=== PATIENT | male | born 1950 | race Caucasian/White ===

== ENCOUNTER 2021-02-07 09:01 | Outpatient (CLI) | payer MEDICARE, OTHER, SELFPAY ==
--- NOTE | 2021-02-07 09:45 | XR_ITS ---
WS: [id number] KUB, AP view, 02/07/2021 Clinical Data: uroliathiasis Comparison: KUB, 02/07/2019. Findings: No abnormal intraabdominal masses are seen. There is no dilatated small bowel or evidence of obstruct ion. There are small calcifications overlying both kidneys. There is a dextroscoliosis with osteoarthritis of the lumbar spine. XR/XR KUB [id number] Impression: Small bilateral renal calculi.
== END 2021-02-07 09:02 | disposition home or self-care (01) ==
LOC: RAD 09:09
PROVIDERS: PCP Family Medicine; Visit Provider Urology
DX: N20.0 Calculus of kidney (principal); N40.1 Benign prostatic hyperplasia with lower urinary tract symptoms
CPT/HCPCS: 74018; 81003; G0103

== ENCOUNTER 2021-08-08 09:34 | Outpatient (CLI) | payer MEDICARE, OTHER, SELFPAY ==
--- NOTE | 2021-08-08 09:50 | XR_ITS ---
WS: [id number] KUB, AP view, 08/08/2021 Clinical Data: urolithiasis Comparison: KUB, 02/07/2021. Findings: No abnormal intraabdominal masses are seen. There is no dilatated small bowel or evidence of obstruct ion. There are bilateral calcifications overlying the kidneys unchanged. There is a dextroscoliosis lumbar spine with osteoarthritis. XR/XR KUB [id number] Impression: No change in bilateral renal calcifications.
== END 2021-08-08 09:35 | disposition home or self-care (01) ==
LOC: RAD 09:41
PROVIDERS: PCP Family Medicine; Visit Provider Urology
DX: N20.0 Calculus of kidney (principal); R31.0 Gross hematuria
CPT/HCPCS: 74018; 81003

== ENCOUNTER 2021-10-23 14:29 | Emergency (ER) | payer OTHER, SELFPAY ==
[2021-10-23 15:27] VITALS: BP 137/80; PULSE 57; RESP 16; TEMP 36.8; O2SAT 99
--- NOTE | 2021-10-23 15:59 | W.ED.GENADLT ---
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 Tetanus UTD. Onset (ago): minute(s) Associated symptoms: Reports no associated symptoms Treatments prior to arrival: other (irrigation of finger) Review of Systems General: Reports: Other (patient has no complaints at this time) REPLACED BY [facility] PFSH: Medical History BPH loc w urin obs/LUTS Gross hematuria Renal stones Surgical History History of cataract surgery bilateral S/P extracorporeal shock wave therapy Family History Mother , AT AGE 62 Myocardial infarct Father , FATHER AT AGE 84 Emphysema, unspecified Social History Smoking and tobacco status: never smoked Alcohol intake: never Marital status: Current occupational status: employed 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 History of recent travel: No Physical Exam Const: COMMON NORMALS: no acute distress, no limitations, alert and well nourished Extremity: COMMON NORMALS: normal to inspection GENERAL: Yes normal exam except as noted OTHER: no needle puncture kelton was able to be visualized to L index finger Neuro: COMMON NORMALS: moves all extremities, no focal motor deficits and no sensory deficits noted SENSORIUM/ORIENTATION: Yes alert Skin: NARRATIVE SKIN EXAM: no pertinent skin findings noted Course Vital Signs: Vital signs: Vital Signs Temperature 98.2 F 10/23/21 15:27 Pulse Rate 57 L 10/23/21 15:27 Respiratory Rate 16 10/23/21 15:27 Blood Pressure 137/80 10/23/21 15:27 Pulse Oximetry 99 10/23/21 15:27 [facility] - General Adult Medical Decision Making home restoration service supervisor will be contacted. Director at [employer] stated source patient was currently being drawn. Patient's tetanus is UTD. He declines PEP for HIV. Employee exposure labs will be drawn. Worker's Comp. packet completed. Patient will be given instructions on directions on where to go to receive drug and alcohol testing. Discharge Plan Discharge Patient Disposition: Home Clinical Impression: Needle stick injury of finger Condition: Stable Prescriptions: No Action metformin 500 mg tablet 500 mg PO DAILY 0RF ezetimibe-simvastatin [Vytorin 10-40] 10-40 mg tablet 1 tab PO DAILY 0RF sildenafil (pulm.hypertension) 20 mg tablet 20 mg PO .prn 0RF Rx Instructions: administer doses at least 4-6 hours apart prevegen PO DAILY 0RF omega-3 fatty acids [Fish Oil Concentrate] 1,000 mg capsule 1,000 mg PO DAILY 0RF cholecalciferol (vitamin D3) 10 mcg (400 unit) capsule 10 mcg PO DAILY 0RF aspirin 81 mg tablet,delayed release (DR/EC) 81 mg PO DAILY 0RF apple cider vinegar 500 mg tablet PO DAILY 0RF tamsulosin 0.4 mg capsule 0.4 mg PO .at bedtime Qty: 90 1RF finasteride 5 mg tablet 5 mg PO DAILY Qty: 90 1RF Discharge Orders: Discharge ED (Routine); Ordered 10/23/21 Ordered By: Courtney Rao Referrals: Irvin Todd MD [Primary Care Provider] - Patient Instructions: Blood/Body Fluid Exposure - Occupational, Needle Stick Injuries (ED) Coding Level of Care Code ED Miller Supervisor for Maninder Lu
[2021-10-23 16:52] VITALS: BP 129/73; PULSE 61; RESP 16; TEMP 36.8; O2SAT 99
[2021-10-23 22:49] LABS: Hepatitis B Surface AB 3.5 (11.5-1000); Hepatitis B Surface Antigen Non-Reactive (Nonreactive); Hepatitis C Virus Antibody Non-Reactive (Nonreactive)
[2021-10-23 23:25] LABS: HIV 1 & 2 Antigen Non-Reactive (Non-Reactiv)
[2021-10-23 23:26] LABS: HIV 1 & 2 Antibody Non-Reactive (Non-Reactiv)
== END 2021-10-23 16:54 | disposition home or self-care (01) ==
PROVIDERS: Emergency Provider Physician Assistant; PCP Family Medicine
DX: S61.231A Puncture wound without foreign body of left index finger without damage to nail, initial encounter (principal); W46.0XXA Contact with hypodermic needle, initial encounter
CPT/HCPCS: 86706; 86803; 87340; 87806; 99283

== ENCOUNTER 2021-11-11 08:28 | Outpatient (CLI) | payer MEDICARE, OTHER, SELFPAY ==
--- NOTE | 2021-11-11 08:35 | XR_ITS ---
WS: [id number] Exam: XR KUB [id number] Date/Time of Exam: 11/11/2021 8:35 AM Reason For Exam: STONES No bowel obstruction or pneumoperitoneum. No sign of organ enlargement. Calcifications are noted over the both kidneys suggesting renal lithiasis. There is also a 7 x 4 mm calcification seen along the m edial margin of the lower pole the right kidney that may represent a stone in the renal pelvis or upp er ureter. Degenerative changes and dextroscoliosis of lumbar spine. XR/XR KUB [id number] IMPRESSION: 1. No acute abdominal process. 2. Calcifications superimpose both kidneys which most likely represent renal li thiasis. 3. 7 x 4 mm calcification seen along the medial lower pole the right kidney kelly t may represent a stone in the right renal pelvis or proximal right ureter.
== END 2021-11-11 08:29 | disposition home or self-care (01) ==
PROVIDERS: PCP Family Medicine; Visit Provider Nurse Practitioner Family
DX: N20.0 Calculus of kidney (principal); N40.1 Benign prostatic hyperplasia with lower urinary tract symptoms; N20.1 Calculus of ureter
CPT/HCPCS: 74018; 81003; 99213

== ENCOUNTER 2021-11-28 09:12 | Outpatient (CLI) | payer MEDICARE, OTHER, SELFPAY ==
--- NOTE | 2021-11-28 09:28 | XR_ITS ---
WS: [email or web address] Exam: XR KUB [id number] Date/Time of Exam: 11/28/2021 9:32 AM Reason For Exam: RENAL STONES Comparison 11/11/2021. A 6 x 3 mm calcification noted along the right paraspinal region at about the level of L3 unchanged i n position. This could be a urinary tract stone. Additional calcifications superimpose left kidney. N o bowel obstruction or free air. No sign of organ enlargement. Degenerative change and dextroscoliosi s the lumbar spine. XR/XR KUB [id number] IMPRESSION: 1. 6 x 3 mm calcification along the right paraspinal region at the level of L3 that may represent a urinary tract stone. It is unchanged in location. Addition al calcifications superimpose the left kidney and are likely renal stones. 2. No acute abdominal process.
--- NOTE | 2021-11-28 11:30 | CTR_ITS ---
PROCEDURE INFORMATION: Exam: CT Abdomen And Pelvis Without Contrast Exam date and time: 11/28/2021 11:19 AM Age: 71 years old Clinical indication: Condition or disease; Kidney or ureter condition; Calculus (stone) in ureter; Additional info: Right ureteral stone, CT stone protocol 11/28/[address] order TECHNIQUE: Imaging protocol: Computed tomography of the abdomen and pelvis without contrast. Radiation optimization: All CT scans at this facility use at least one of these dose optimization techniques: automated exposure control; mA and/or kV adjustment per patient size (includes targeted exams where dose is matched to clinical indication); or iterative reconstruction. COMPARISON: CT Abdomen/[place]elvis wwo [id number] 10/05/2017 9:40 AM RADIATION DOSE METRICS: Total DLP (mGy-cm): 1277.67 FINDINGS: Diaphragm: Small hiatal hernia. Liver: Subcentimeter low-density liver lesion is too small to characterize. Gallbladder and bile ducts: Normal. No calcified stones. No ductal dilation. Pancreas: Normal. No ductal dilation. Spleen: Normal. No splenomegaly. Adrenal glands: Normal. No mass. Kidneys and ureters: There is a 7 mm calculus in the proximal right ureter. No hydronephrosis. Multiple left renal cysts are seen. Nonobstructing 7 mm left renal calculus. Additional tiny nonobstructing left lower pole renal calculi are seen. Stomach and bowel: Colonic diverticulosis without evidence of diverticulitis. No bowel obstruction. Appendix: No evidence of appendicitis. Intraperitoneal space: Unremarkable. No free air. No significant fluid collection. Vasculature: Unremarkable. No abdominal aortic aneurysm. Lymph nodes: Unremarkable. No enlarged lymph nodes. Urinary bladder: Unremarkable as visualized. Reproductive: Prostatomegaly. Bones/joints: Unremarkable. No acute fracture. Soft tissues: Unremarkable. CT/CT abdomen pelvis con [id number] IMPRESSION: There is a 7 mm calculus in the proximal right ureter without hydronephrosis. COMMENTS: Consistent with the [place] [employer]'s Incidental Findings Committee white paper (J Am Jade Radiol 2018): Any incidental renal lesion less than 1 cm or classified as too small to characterize, or any incidental cystic renal lesion characterized as simple-appearing, is likely benign. No follow-up imaging is recommended for these lesions per consensus recommendations based on imaging criteria.
== END 2021-11-28 09:13 | disposition home or self-care (01) ==
LOC: RAD 09:16
PROVIDERS: PCP Family Medicine; Visit Provider Urology
DX: N20.1 Calculus of ureter (principal); N20.2 Calculus of kidney with calculus of ureter; K44.9 Diaphragmatic hernia without obstruction or gangrene; K57.90 Diverticulosis of intestine, part unspecified, without perforation or abscess without bleeding
CPT/HCPCS: 74018; 74176; 81003; 99213

== ENCOUNTER → 2021-11-28 09:44 | Outpatient (BNVA) | payer MEDICARE, OTHER, SELFPAY | PROVIDERS: PCP Family Medicine; Visit Provider Urology | DX: N20.1 Calculus of ureter (principal) | CPT/HCPCS: 81003; 99213 ==

== ENCOUNTER 2021-12-09 06:09 | Day surgery (SDC) | payer MEDICARE, OTHER, SELFPAY ==
[2021-12-06 11:12] VITALS: BMI 39.0
--- NOTE | 2021-12-06 12:55 | P.ANESASSM_ITS ---
Pre-Anesthetic Assessment Height/Weight: Height 1.8 m Weight 127.006 kg Operation Date: 12/09/21 07:50 Proposed Procedures p Right ESWL 62572 [id number] 01631 26,N20.0,N20.1 (Requesting Angelo As Dog Daycare Provider)(Right) - MD homero Pena Cystoscopy(Not Applicable) - Stiven Singh MD s Retrograde Pyelogram(Right) - MD homero Pena Ureteral Stent Placement(Right) - Stiven Singh MD Familial anesthetic complications: none Was Beta Tracy taken within 24 hours: N/A Was Clonidine taken within 24 hours: N/A Social No alcohol and No tobacco Exam alert, oriented x 3, clear to auscultation bilaterally and regular rate & rhythm Airway Submandibular: within normal limits Cervical ROM: within normal limits Mallampati: Class II Dentition: full kidney stones Metabolic Diabetes Mellitus, Hyperlipidemia and Morbid Obesity Anesthetic Plan ASA status: 3 Anesthesia: General Medications/Allergies Home Medications Medication Instructions Recorded Confirmed Last Taken Type apple cider vinegar 500 mg tablet mg PO DAILY tab 02/07/21 11/28/21 Unknown History aspirin 81 mg tablet,delayed 81 mg PO DAILY 02/07/21 12/06/21 12/04/21 History release cholecalciferol (vitamin D3) 10 10 mcg PO DAILY 02/07/21 12/06/21 Unknown History mcg (400 unit) capsule ezetimibe 10 mg-simvastatin 40 mg 1 tab PO DAILY 02/07/21 12/06/21 Unknown History tablet (Vytorin) metformin 500 mg tablet 500 mg PO DAILY 02/07/21 12/06/21 Unknown History omega-3 fatty acids 1,000 mg 1,000 mg PO DAILY 02/07/21 12/06/21 Unknown History capsule (Fish Oil Concentrate) prevegen PO DAILY 02/07/21 11/28/21 Unknown History sildenafil (pulm.hypertension) 20 20 mg PO .prn tab 02/07/21 12/06/21 Unknown History mg tablet finasteride 5 mg tablet 5 mg PO DAILY #90 tab 06/26/21 12/06/21 Unknown Rx tamsulosin 0.4 mg capsule 0.4 mg PO .at bedtime #90 cap 06/26/21 12/06/21 Unknown Rx hydrocodone 5 mg-acetaminophen 325 1 tab PO Q6H PRN 5 Days #20 tab 11/11/21 12/06/21 Unknown Rx mg tablet ondansetron HCl 4 mg tablet 4 mg PO Q6H PRN #20 tab 11/11/21 12/06/21 Unknown Rx Allergies Allergy/AdvReac Type Severity Reaction Status Date / Time codeine Allergy Unknown RASH Verified 11/28/21 10:20 PFSH Anesthesia Medical History BPH loc w urin obs/LUTS Gross hematuria Renal stones Surgical History History of cataract surgery bilateral S/P extracorporeal shock wave therapy Family History Mother , AT AGE 62 Myocardial infarct Father , FATHER AT AGE 84 Emphysema, unspecified Social History Smoking and tobacco status: never smoked Alcohol intake: never Marital status: Current occupational status: employed 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
[2021-12-09] VITALS (12 sets, daily range): BP systolic 124–154; BP diastolic 77–89; PULSE 50–69; RESP 15–24; TEMP 36.2–36.6; O2SAT 96–100
--- NOTE | 2021-12-09 06:16 | XR_ITS ---
WS: [id number] Exam: XR KUB [id number] Date/Time of Exam: 12/09/2021 6:19 AM Reason For Exam: Right proximal ureteral calculus Comparison 11/28/2021. Calcifications superimpose both kidneys apparently representing known renal stones. No bowel obstruct ion or free air. No sign of organ enlargement. Moderate DJD and dextroscoliosis of the lumbar spine. XR/XR KUB [id number] IMPRESSION: 1. Calcifications superimpose both kidneys and apparently represent known renal stones. 2. No acute abdominal process.
[2021-12-09 07:20] LABS: Glucose Point of Care 115 mg/dL (70-110)
--- NOTE | 2021-12-09 07:23 | P.ANESUD_ITS ---
Pre-Anesthetic Update Pre-Anesthetic Assessment: Date of Surgery/Procedure: 12/09/21 Preop Abena gnosis: Right proximal ureteral stone Proposed Procedure: Operation Date: 12/09/21 07:50 Proposed Procedures p Right ESWL 12840 51533 22840 26,N20.0,N20.1 (Requesting Angelo As Linoleum Mechanic)(Right) - MD homero Pena Cystoscopy(Not Applicable) - Stiven Singh MD s Retrograde Pyelogram(Right) - MD homero Pena Ureteral Stent Placement(Right) - Stiven Singh MD Any changes to Pre-Anesthetic Assessment?: No Exam: Pre-Anes Outpt Exam: alert, oriented x 3, clear to auscultation bilaterally and regular rate & rhythm Cardiac Studies: No Data to Display
--- NOTE | 2021-12-09 07:23 | ANES.PAUD2 ---
Pre-Anesthetic Update Pre-Anesthetic Assessment: Date of Surgery/Procedure: 12/09/21 Preop Diagnosis: Right proximal ureteral stone Proposed Procedure: Operation Date: 12/09/21 07:50 Proposed Procedures p Right ESWL 59522 [id number] 75274 26,N20.0,N20.1 (Requesting Angelo As Bed Placement Coordinator)(Right) - MD homero Pena Cystoscopy(Not Applicable) - MD homero Pena Retrograde Pyelogram(Right) - MD homero Pena Ureteral Stent Placement(Right) - Stiven Singh MD Any changes to Pre-Anesthetic Assessment?: No Exam: Pre-Anes Outpt Exam: alert, oriented x 3, clear to auscultation bilaterally and regular rate & rhythm Cardiac Studies: No Data to Display
[2021-12-09] MEDS: sodium chloride 0.9% 1,000 ML 30 ML IV (07:25)
--- NOTE | 2021-12-09 08:33 | P.HPUD_ITS ---
Surgery/Procedure H&P Update DATE OF PROCEDURE: December 09, 2021 DATE H&P PERFORMED: 11/28/21 H&P UPDATE INFORMATION: I have reviewed H&P completed within last 30 days, I have examined patient prior to procedure and Changes to prior documentation as noted here CHANGES TO PREVIOUS DOCUMENTATION: The stone has migrated back into the renal pelvic area. Reviewed this with the patient. He is comfortable with proceeding as scheduled. PREOP DIAGNOSIS: Right proximal ureteral stone PLANNED PROCEDURE: Operation Date: 12/09/21 07:50 Proposed Procedures p Right ESWL 93749 60084 69527 26,N20.0,N20.1 (Requesting Angelo As Finishing Supervisor Plastic Sheets)(Right) - Stiven Singh MD s Cystoscopy(Not Applicable) - Stiven Singh MD s Retrograde Pyelogram(Right) - Stiven Singh MD s Ureteral Stent Placement(Right) - Stiven Singh MD
--- NOTE | 2021-12-09 08:57 | PM.OP ---
Operative Report Date of procedure: December 09, 2021 Pre-op diagnosis: Right proximal ureteral/renal pelvic stone Post-op diagnosis: Right proximal ureteral/renal pelvic stone Procedure done: Right extracorporeal shockwave lithotripsy renal pelvic stone Implants: None Specimens removed/disposition: None Pathology: None Surgeon: Francisco Brick Layer: Lithotripsy networking technician: Marialuisa Anesthesia: General Urine output: Not measured Complications: None Findings: Preoperatively, a KUB demonstrated that the stone had migrated into the renal pelvis. Easily identified with fluoroscopy. 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 No severe renal colicky type symptoms. CT scan confirmed the stone to be in the proximal ureter with some obstructive changes. It was recommended to go ahead and treat and is admitted now for ESWL possible stent. Preoperative KUB showed the stone had migrated back into the renal pelvis. He was offered the option to hold on treatment but based on the stones mobility he wanted to go ahead and treated to prevent it from dropping back down again. Procedure: After routine preoperative evaluation examination and obtaining of informed consent he was taken to the operating suite on 12/09/2021 where general anesthesia was administered without difficulty after appropriate timeout was performed, SCDs confirmed to be functioning, preoperative antibiotics administered, beta-hans protocol confirmed. Placed on the Dornier unit in supine position paying careful attention to avoiding pressure points. Stone was brought to the focal point utilizing biplanar fluoroscopy. The shock head was positioned anteriorly. Stone was easily focused upon. Shockwave was initiated at a low intensity advanced intensity of 8. After approximately 300 shocks a several minute pause was conducted. Rate was initiated at 70. Total number of shocks: 2500 Results: Good change. Could barely see any residual fragments at the completion of the procedure. Tolerated the procedure well without complications. Was awakened in the operating room and returned to the recovery room in stable condition PLANS: 1. Anticipate discharge from outpatient surgery today 2. Follow-up in 2 to 3 weeks with KUB 3. Focus on dietary modification for stone risk reduction and possibly metabolic evaluation on follow-up
[2021-12-09] MEDS: levofloxacin-dextrose 5 % 500 MG/100 ML PREMIX 100 MG IV (09:00)
--- NOTE | 2021-12-09 09:27 | ECG_ITS ---
[facility] Test Date: 2021-12-09 Pat Name: Vazquez Henry Department: Room: Gender: Male Ripening Room Attendant: : 1950 Requested By: Brad Pandey Order Number: [id number] Alexsandra MD: Lorena Hodgson M.D. Measurements Intervals Sterling Rate: 56 P: 61 NV: 201 QRS: -21 QRSD: 145 T: -2 QT: 428 QTc: 414 Interpretive Statements SINUS BRADYCARDIA BORDERLINE LEFT AXIS DEVIATION [QRS AXIS < -20] RIGHT BUNDLE BRANCH BLOCK [120+ ms QRS DURATION, UPRIGHT V1, 40+ ms S IN I/aVL/V4/V5/V6] No previous ECG available for comparison Electronically Signed On 12-09-2021 21:30:54 CDT by Lorena Hodgson M.D. [id number]
[2021-12-09] MEDS: ondansetron 2 mg/ML SDV 2 mL 4 MG IVP (11:15)
[2021-12-09] MEDS: HYDROcodone-acetaminophen 5-325 mg Tablet 1 TAB PO (11:16)
--- NOTE | 2021-12-09 13:48 | ANE.PACU2 ---
Inpatient post-anesthesia follow up: Airway intact: Yes Vital signs: Temperature 98 F Pulse Rate 51 Respiratory Rate 16 Blood Pressure 141/89 Pulse Oximetry 97 Oxygen Delivery Me thod Room Air Oxygen Flow Rate 6 Fraction of Inspir ed Oxygen Hydration adequate: Yes Nausea and vomiting: No Pain level: 3 Mental status: Baseline
== END 2021-12-09 11:25 | disposition home or self-care (01) ==
PROVIDERS: PCP Family Medicine; Visit Provider Urology
PROC: (CPT 50590; principal; 2021-12-09 07:50)
DX: N20.2 Calculus of kidney with calculus of ureter (principal); E11.9 Type 2 diabetes mellitus without complications; E78.5 Hyperlipidemia, unspecified; E66.01 Morbid (severe) obesity due to excess calories; Z68.39 Body mass index [BMI] 39.0-39.9, adult; Z79.84 Long term (current) use of oral hypoglycemic drugs; N40.1 Benign prostatic hyperplasia with lower urinary tract symptoms; N13.8 Other obstructive and reflux uropathy
CPT/HCPCS: 50590; 36416; 74018; 82962; 93005; J0330; J1100; J1956; J2405; J2704; J3010; J7030

== ENCOUNTER 2021-12-24 09:49 | Outpatient (CLI) | payer MEDICARE, OTHER, SELFPAY | END 2021-12-24 09:50 | disposition home or self-care (01) | LOC: RAD 09:53 | PROVIDERS: PCP Family Medicine; Visit Provider Urology | DX: N20.2 Calculus of kidney with calculus of ureter | CPT/HCPCS: 74018; 81003; 99213 ==

== ENCOUNTER 2022-06-24 13:17 | Outpatient (CLI) | payer MEDICARE, OTHER, SELFPAY ==
--- NOTE | 2022-06-24 13:30 | XR_ITS ---
WS: [id number] KUB, AP view, 06/24/2022 Clinical Data: STONES Comparison: KUB, 12/24/2021 Findings: There is a 0.6 cm calcification overlying the mid left kidney unchanged. No abnormal intraabdominal masses are seen. There is no dilatated small bowel or evidence of obstruct ion. The bladder is full. There is degenerative change with a dextroscoliosis of the lumbar spine. There i s moderate fecal material in the proximal colon. XR/XR KUB [id number] Impression: No change in probable left renal calculus.
== END 2022-06-24 13:18 | disposition home or self-care (01) ==
LOC: RAD 13:20
PROVIDERS: Visit Provider Urology
DX: N20.0 Calculus of kidney (principal); N40.1 Benign prostatic hyperplasia with lower urinary tract symptoms; N52.9 Male erectile dysfunction, unspecified
CPT/HCPCS: 74018; 81003; 99213

== ENCOUNTER 2022-09-24 10:42 | Outpatient (CLI) | payer MEDICARE, OTHER, SELFPAY ==
--- NOTE | 2022-09-24 10:52 | XRR_ITS ---
PROCEDURE INFORMATION: Exam: XR Abdomen Exam date and time: 09/24/2022 10:55 AM Age: 72 years old Clinical indication: Condition or disease; Kidney or ureter condition; Calculus (stone) in kidney; Patient HX: Kidney stones. History of lithotripsy. ; Additional info: Stones, kub oly 09/24/22 @ 11:15 am appt to follow TECHNIQUE: Imaging protocol: Radiologic exam of the abdomen. Views: Frontal supine view of the abdomen. 1 View. COMPARISON: CR XR KUB [id number] 06/24/2022 1:31 PM FINDINGS: Gastrointestinal tract: Visualized bowel gas pattern is unremarkable. Organs: There is an oval-shaped calcification measuring 1.2 cm in length projecting over the left proximal ureter on the current study suspicious for ureteral stone. Previously noted calcification over the left renal fossa is no longer detected. There are no suspicious calcifications overlying the course of the right tract. Bones/joints: There is slight scoliosis convex to the patient's right with mild multilevel degenerative changes lumbar spine. Other findings: No suspicous calcifications. XR/XR KUB [id number] IMPRESSION: Findings suspicious for 1.2 cm left proximal ureteral stone which could be better assessed on CT exam.
== END 2022-09-24 10:43 | disposition home or self-care (01) ==
LOC: RAD 10:47
PROVIDERS: PCP Family Medicine; Visit Provider Urology
DX: N20.1 Calculus of ureter (principal)
CPT/HCPCS: 74018; 81003; 99214

== ENCOUNTER 2022-09-24 12:41 | Outpatient (CLI) | payer MEDICARE, OTHER, SELFPAY ==
--- NOTE | 2022-09-24 13:45 | CT_ITS ---
WS: [id number] CT ABDOMEN AND PELVIS NONCONTRAST HISTORY: STONES, left-sided flank pain. TECHNIQUE: Imaging performed through the abdomen and pelvis. Coronal and sagittal reformats are submi tted. All CT scans at [facility] use at least one of these dose optimization techniques: auto mated exposure control; mA and/or kV adjustment per patient size (includes targeted exams where dose is matched to clinical indication); or iterative reconstruction. DLP: 1090.77 mGy.cm COMPARISON: 11/28/2021 Lower thorax: Lung bases are clear. Visualized heart is normal. Small hiatal hernia. Liver: Normal size liver. No mass or bile duct dilatation. Gallbladder: Normal gallbladder. Pancreas: Normal size and attenuation. Normal pancreatic duct. No pancreatitis or mass. Spleen: Normal. Adrenal glands: Normal. No mass. Right kidney: No renal obstruction. Nonobstructing very small renal calcifications. Left kidney: Mild perinephric stranding. Multiple low-attenuation masses within the LEFT kidney simil ar to the prior study consistent with cysts. Obstructing proximal LEFT ureteral calcification measuri ng 7 x 10 mm. Calcification is at the UP junction. Ureter distal to this calcification is normal. The re are additional smaller calcifications in the renal pelvis which are nonobstructing. Aorta: Normal abdominal aorta, no aneurysm or atherosclerosis. No free fluid, intraperitoneal air or significant lymphadenopathy. GI tract: Negative stomach and small bowel. Normal appendix. No colon obstruction. A few scattered di verticula in the descending and sigmoid colon, no diverticulitis. Abdominal wall: Small umbilical hernia contains fat only. Pelvis: Prostate gland enlargement encroaching into the bladder. Osseous structures: Degenerative curvature lumbar spine. CT/CT kidney stone [id number] IMPRESSION: 1. Mild LEFT hydronephrosis secondary to a 7 x 10 mm calcification at the UP j unction. 2. Additional nonobstructing very small bilateral renal calcifications. 3. Normal appendix. 4. LEFT renal cyst.
== END 2022-09-24 12:42 | disposition home or self-care (01) ==
PROVIDERS: PCP Family Medicine; Visit Provider Urology
DX: N13.0 Hydronephrosis with ureteropelvic junction obstruction (principal); N28.89 Other specified disorders of kidney and ureter; N28.1 Cyst of kidney, acquired
CPT/HCPCS: 74018; 74176; 81003; 99214

== ENCOUNTER 2022-09-29 05:44 | Day surgery (SDC) | payer MEDICARE, OTHER, SELFPAY ==
[2022-09-26 12:38] VITALS: BMI 39.0
--- NOTE | 2022-09-29 05:52 | XRR_ITS ---
PROCEDURE INFORMATION: Exam: XR Abdomen Exam date and time: 09/29/2022 5:55 AM Age: 72 years old Clinical indication: Other: Left ureteral stone; Prior surgery; Surgery date: 6+ months; Surgery type: Lithotripsy; Additional info: Left proximal ureteral stone with obstruction, preop eswl TECHNIQUE: Imaging protocol: Radiologic exam of the abdomen. Views: Frontal supine view of the abdomen. 1 View. COMPARISON: CT kidney stone [id number] 09/24/2022 12:59 PM FINDINGS: Gastrointestinal tract: Paucity of bowel gas. Moderate colonic fecal volume. Organs: Multiple calcifications overlie the vicinity of collecting structures of left kidney. An oval calcification medial to the lower left kidney would be suspicious for proximal ureteral location in correlation to recent CT. Recent CT demonstrated right renal calculi are not well visualized due to small size. Bones/joints: Degenerative change of the spine. XR/XR KUB [id number] IMPRESSION: 1. Suspect residual large proximal left ureteral calculus similar in location compared to recent CT. 2. Multiple left intrarenal calculi.
[2022-09-29 06:07] VITALS: BP 151/90; PULSE 62; RESP 18; TEMP 36; O2SAT 100
[2022-09-29 06:19] LABS: Glucose Point of Care 107 mg/dL (70-110)
--- NOTE | 2022-09-29 06:32 | ANES.PREANE2 ---
Pre-Anesthetic Assessment Height/Weight: Height 1.8 m Weight 127.006 kg Temp Pulse Resp BP Pulse Ox O2 Del Method 96.8 F L 62 18 151/90 100 09/29/22 06:07 09/29/22 06:07 09/29/22 06:07 09/29/22 06:07 09/29/22 06:07 09/29/22 06:12 Preop Diagnosis: Left proximal ureteral stone with obstruction Operation Date: 09/29/22 07:00 Proposed Procedures p CYSTOSCOPY, LEFT URETERAL STENT EXTRACORPOREAL SHOCKWAVE LITHOTRIPSY N20.1 [id number](Not Applicable) - Stiven Singh MD s Ureteral Stent Placement(Not Applicable) - Stiven Singh MD s ESWL(Not Applicable) - Stiven Singh MD Familial anesthetic complications: None Was Beta Tracy taken within 24 hours: N/A Was Clonidine taken within 24 hours: N/A Last intake: Intake Last Liquid Date 09/28/22 Last Liquid Time 22:00 Last Solid Date 09/28/22 Last Solid Time 20:00 Social No alcohol and No tobacco Exam alert, oriented x 3, clear to auscultation bilaterally and regular rate & rhythm Airway Mallampati: Class III Dentition: full Comments: Comments: nazario Metabolic Diabetes Mellitus, Hyperlipidemia and Morbid Obesity Anesthetic Plan ASA status: 3 Anesthesia: General Risk of > 500 ml blood loss (7ml/kg in children): No Medications/Allergies Home Medications Medication Instructions Recorded Confirmed Last Taken Type aspirin 81 mg tablet,delayed 81 mg PO DAILY 02/07/21 09/26/22 09/25/22 History release cholecalciferol (vitamin D3) 10 10 mcg PO DAILY 02/07/21 09/26/22 09/28/22 History mcg (400 unit) capsule ezetimibe 10 mg-simvastatin 40 mg 1 tab PO DAILY 02/07/21 09/26/22 09/28/22 History tablet (Vytorin) metformin 500 mg tablet 500 mg PO DAILY 02/07/21 09/26/22 09/28/22 History omega-3 fatty acids 1,000 mg 1,000 mg PO DAILY 02/07/21 09/26/22 09/28/22 History capsule (Fish Oil Concentrate) prevegen 1 cap PO DAILY 02/07/21 09/26/22 09/28/22 History ondansetron HCl 4 mg tablet 4 mg PO Q6H PRN nausea and 11/11/21 09/29/22 09/26/22 Rx vomiting #20 tabs sildenafil 100 mg tablet 100 mg PO DAILY PRN sexual 06/24/22 09/26/22 Unknown Rx activity #20 tabs oxycodone-acetaminophen 5 mg-325 1 tab PO Q6H PRN Renal colic 5 09/24/22 09/26/22 09/26/22 Rx mg tablet (Percocet) days #20 tabs finasteride 5 mg tablet 5 mg PO DAILY 09/26/22 09/26/22 09/28/22 History tamsulosin 0.4 mg capsule 0.4 mg PO DAILY 09/26/22 09/26/22 09/28/22 History Allergies Allergy/AdvReac Type Severity Reaction Status Date / Time codeine Allergy Unknown RASH Verified 09/26/22 12:34 PFSH Anesthesia Medical History BPH loc w urin obs/LUTS Gross hematuria Renal stones Urolithiasis Surgical History History of cataract surgery bilateral S/P extracorporeal shock wave therapy Family History Mother , AT AGE 62 Myocardial infarct Father , FATHER AT AGE 84 Emphysema, unspecified Social History Smoking and tobacco status: never smoked Alcohol intake: never Marital status: Current occupational status: employed 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
--- NOTE | 2022-09-29 06:52 | P.HPUD_ITS ---
Surgery/Procedure H&P Update DATE OF PROCEDURE: September 29, 2022 DATE H&P PERFORMED: 09/24/22 H&P UPDATE INFORMATION: I have reviewed H&P completed within last 30 days, I have examined patient prior to procedure, No changes to prior documentation and H&P is in [facility] on date indicated PREOP DIAGNOSIS: Left proximal ureteral stone with obstruction PLANNED PROCEDURE: Operation Date: 09/29/22 07:00 Proposed Procedures p CYSTOSCOPY, LEFT URETERAL STENT EXTRACORPOREAL SHOCKWAVE LITHOTRIPSY N20.1 [id number](Not Applicable) - Stiven Singh MD s Ureteral Stent Placement(Not Applicable) - Stiven Singh MD s ESWL(Not Applicable) - Stiven Singh MD
[2022-09-29] MEDS: sodium chloride 0.9% 1,000 ML 30 ML IV (06:54)
[2022-09-29] MEDS: levofloxacin-dextrose 5 % 500 MG/100 ML PREMIX 100 MG IV (07:07)
[2022-09-29 08:25] VITALS: BP 151/85; PULSE 78; RESP 16; TEMP 36.1; O2SAT 96
[2022-09-29 08:30] VITALS: BP 137/88; PULSE 74; RESP 16; O2SAT 94
[2022-09-29 08:35] VITALS: BP 136/91; PULSE 70; RESP 18; O2SAT 93
[2022-09-29 08:40] VITALS: BP 129/71; PULSE 63; RESP 16; TEMP 36.2; O2SAT 93
[2022-09-29 08:46] VITALS: BP 125/83; PULSE 61; RESP 18; TEMP 36.2; O2SAT 95
--- NOTE | 2022-09-29 09:53 | P.OP_ITS ---
Operative Report Date of procedure: September 29, 2022 Pre-op diagnosis: Left proximal ureteral stone (10+ millimeters) with obstruction Post-op diagnosis: Left proximal ureteral stone (10+ millimeters) with obstruction Procedure done: 1. Cystoscopy, LEFT: Ureteral stent placement (7 [place]orran by 30 cm double-pigtail without string) 2. LEFT: Extracorporeal shockwave lithotripsy (UPJ stone) Implants: Left ureteral stent, 7 [place]ran by 30 cm Specimens removed/disposition: None Pathology: None Surgeon: [facility] Teacher: Lithotripsy Logistics Service Representative: Vitaly Felipe Estimated blood loss: None Urine output: Not measured Complications: None Findings: Anesthesia: General Condition: Stable Disposition: PACU Intraoperative findings: * Stone in the expected position. * Stent placed prior to ESWL and left indwelling at the completion of the procedure * Lithotripsy results: Excellent change after 2500 shocks. Brief History: Erick is a delightful 72-year-old white male who has a history of urolithiasis and BPH. He was recently discovered to have a 10+ millimeter stone obstructing his left UPJ with typical renal colicky type symptoms. No evidence of infection. He ultimately chose to proceed with ESWL and stent. Procedure: After routine preoperative evaluation examination and obtaining of informed consent he was taken to the operating suite on 09/29/2022 where general anesthesia was administered without difficulty after appropriate timeout was performed, SCDs confirmed to be functioning, preoperative antibiotics administered, beta-hans protocol confirmed. Prepped and draped in usual sterile fashion in dorsolithotomy position pain careful attention to avoiding pressure points. 21 Andorran cystoscope with 30 degree lens was introduced into urethra meatus and advanced into the bladder under videoscopy. The bladder was systematically examined. He has a large and friable prostate. The left ureteral orifice was identified and a flexible tip guidewire was advanced up the left ureter bypassing the stone curling in the area of the upper pole calyx. A 7 [place]orran by 30 cm double-pigtail stent was advanced over the guidewire through the cystoscope into appropriate position bypassing the stone. Fluoroscopy cystoscopy was used to confirm position. Bladder was partially drained. Repositioned in supine position on the Dornier unit such that the stone was located at the focal point utilizing biplanar fluoroscopy with shock head positioned posteriorly initially. Therapy was initiated at a rate of 60 and a low intensity with advancement and intensity over several 100 shocks. At 300 shocks a several minute pause was conducted. Due to the more anterior location of the stone as a consequence of lower pole cyst it was hard to keep the stone and focus at that position so therefore the shock had was positioned anteriorly which helped dramatically. A total of 2500 shocks were administered with excellent change. Maximum intensity was 5. Rate was increased to 90 after significant change occurred. He tolerated procedure well without complications and was awakened in the operating room and returned to the recovery room in stable condition. PLANS: 1. Anticipate discharge from outpatient surgery 2. Follow-up in 1 week with [facility]. 3. Maintain stent until convinced all remaining fragments are small enough to pass
--- NOTE | 2022-09-29 10:01 | PC.NURSE ---
pt was requested to urinate before discharge, pt used a urinal at bedside and voided 100 ml. Urine was red colored and contained no evidence of stone particles present
--- NOTE | 2022-09-29 14:08 | ANE.PACU2 ---
Inpatient post-anesthesia follow up: Airway intact: Yes Vital signs: Temperature 97.2 F Pulse Rate 61 Respiratory Rate 18 Blood Pressure 125/83 Pulse Oximetry 95 Oxygen Delivery Me thod Room Air Oxygen Flow Rate Fraction of Inspir ed Oxygen Hydration adequate: Yes Nausea and vomiting: No Pain level: 1 Mental status: Baseline
== END 2022-09-29 10:00 | disposition home or self-care (01) ==
PROVIDERS: PCP Family Medicine; Visit Provider Urology
PROC: 0TJB8ZZ Inspection of Bladder, Via Natural or Artificial Opening Endoscopic (ICD-10-PCS; CPT 52000; principal; 2022-09-29 07:00)
PROC: (CPT 50605; 2022-09-29 07:00)
PROC: (CPT 50590; 2022-09-29 07:00)
DX: N20.1 Calculus of ureter (principal); Z87.442 Personal history of urinary calculi; N40.1 Benign prostatic hyperplasia with lower urinary tract symptoms; N13.8 Other obstructive and reflux uropathy; Z79.82 Long term (current) use of aspirin; N52.9 Male erectile dysfunction, unspecified; E11.9 Type 2 diabetes mellitus without complications; Z79.84 Long term (current) use of oral hypoglycemic drugs; E78.5 Hyperlipidemia, unspecified; E66.01 Morbid (severe) obesity due to excess calories; Z68.39 Body mass index [BMI] 39.0-39.9, adult
CPT/HCPCS: 50590; 52332; 36416; 74018; 82962; C2625; J0330; J1100; J1956; J2405; J2704; J3010; J3490; J7030

== ENCOUNTER 2022-10-06 15:00 | Outpatient (CLI) | payer MEDICARE, OTHER, SELFPAY ==
--- NOTE | 2022-10-06 15:12 | XR_ITS ---
WS: [id number], AP view, 10/06/2022 Clinical Data: STONES Comparison: KUB, 09/29/2022 Findings: No abnormal intraabdominal masses are seen. There is no dilatated small bowel or evidence of obstruct ion. The calcification which was between the left L2 and L3 vertebral bodies is no longer seen. There is a small calcification adjacent to the tip of the left L3 transverse process. The left ureteral stents in good position. XR/XR KUB [id number] Impression: Left ureteral stent with minimal calcification adjacent to the proximal portion of the stent.
== END 2022-10-06 15:01 | disposition home or self-care (01) ==
LOC: RAD 15:03
PROVIDERS: PCP Family Medicine; Visit Provider Urology
DX: N20.9 Urinary calculus, unspecified (principal)
CPT/HCPCS: 74018

== ENCOUNTER 2022-10-13 14:52 | Outpatient (CLI) | payer MEDICARE, OTHER, SELFPAY ==
--- NOTE | 2022-10-13 15:02 | XR_ITS ---
WS: [id number] Exam: XR KUB [id number] Date/Time of Exam: 10/13/2022 3:03 PM Reason For Exam: stones Comparison 10/06/2022. A left-sided ureteral stent catheter is in place in satisfactory position. No bowel obstruction or fr ee air noted. No sign of organ enlargement. There is dextroscoliosis and degenerative change of the l umbar spine. XR/XR KUB [id number] IMPRESSION: 1. Left-sided ureteral stent catheter in satisfactory position without change. 2. No acute abdominal process.
== END 2022-10-13 14:53 | disposition home or self-care (01) ==
LOC: RAD 14:56
PROVIDERS: PCP Family Medicine; Visit Provider Urology
DX: N20.1 Calculus of ureter (principal)
CPT/HCPCS: 74018; 87086; 99024

== ENCOUNTER 2022-11-27 07:44 | Outpatient (CLI) | payer MEDICARE, OTHER, SELFPAY ==
--- NOTE | 2022-11-27 07:56 | XR_ITS ---
WS: [id number] K[facility], AP view, 11/27/2022 Clinical Data: STONES Comparison: KUB, 10/13/2022 Findings: No abnormal intraabdominal masses or calcifications are seen. There is no dilatated small bowel or ev idence of obstruction. The left ureteral stent has been removed. There is a large amount of fecal material in the colon XR/XR KUB [id number] Impression: Negative KUB.
== END 2022-11-27 07:45 | disposition home or self-care (01) ==
PROVIDERS: PCP Family Medicine; Visit Provider Urology
DX: Z48.816 Encounter for surgical aftercare following surgery on the genitourinary system (principal); N20.1 Calculus of ureter; Z96.0 Presence of urogenital implants
CPT/HCPCS: 74018; 99024